=== PATIENT | female | born 1960 | race African-American/Black ===

== ENCOUNTER 2019-04-18 06:38 | Emergency (ER) | payer OTHER ==
[~2019-04-18] VITALS: Ht 160 cm; Wt 105.0 kg
[2019-04-18] MEDS ORDERED: ASPIRIN 81MG TABLET PO ONE (07:00)
[2019-04-18] MEDS ORDERED: NITROGLYCERIN 0.4MG TABLET SL SL PRN (07:00)
[2019-04-18 07:31] LABS: BASOPHILS % 0.4 % (0.0-2.0); EOSINOPHILS % 1.8 % (0.0-5.0); HEMATOCRIT. 37.6 % (36.0-48.0); HEMOGLOBIN. 12.1 g/dL (12.0-16.0); LYMPHOCYTES % 37.6 % (20.0-50.0); MEAN CORPUSCULAR HEMOGLOBIN 25.3 pg (28.0-32.0); MEAN CORPUSCULAR VOLUME 78.5 fL (81.0-99.0); MEAN PLATELET VOLUME 9.7 fl (7.4-10.4); MONOCYTES % 6.3 % (2.0-8.0); NEUTROPHILS % 53.9 % (40.0-76.0); PLATELET 258 x1000/uL (130-400); RED CELL DISTRIBUTION WIDTH 18.8 % (11.6-14.6)
[2019-04-18 09:06] LABS: CHLORIDE 107 mEq/L (98-107)
[2019-04-18 14:20] VITALS: BP 133/71
[2019-04-18] MEDS ORDERED: IOHEXOL-350 100 ML BOTTLE ONE (15:04)
== END 2019-04-18 14:35 | disposition home or self-care (01) ==
LOC: ER 07:54 → EDBEDREQ 11:38 → CANBEDREQ 12:22 → ER 14:35
DX: R07.89 Other chest pain (principal); F41.9 Anxiety disorder, unspecified; I20.0 Unstable angina; I10 Essential (primary) hypertension; Z90.710 Acquired absence of both cervix and uterus; Z98.891 History of uterine scar from previous surgery
CPT/HCPCS: 36415; 71045; 71275; 80053; 83880; 84484; 85025; 93005; 99284; Q9967; Z7610